=== PATIENT | male | born 1995 ===

== ENCOUNTER → 2017-09-28 | Outpatient (CLI) | payer OTHER | LOC: M WUC 13:37 | DX: M25.562 Pain in left knee (principal); M25.561 Pain in right knee ==

== ENCOUNTER → 2018-07-29 | Outpatient (REF) | payer OTHER | LOC: M LAB REF 19:18 | PROVIDERS: ATTEND Physician Assistant | DX: J02.9 Acute pharyngitis, unspecified (principal) ==